=== PATIENT | female | born 1950 | race Caucasian/White ===

== ENCOUNTER → 2020-06-19 08:00 | Outpatient (BNVA) | payer OTHER, MEDICARE, SELFPAY | PROVIDERS: Family Provider Internal Medicine; PCP Family Medicine; Visit Provider Family Medicine | DX: N17.9 Acute kidney failure, unspecified (principal); G43.009 Migraine without aura, not intractable, without status migrainosus; I10 Essential (primary) hypertension; Z68.1 Body mass index [BMI] 19.9 or less, adult; F17.210 Nicotine dependence, cigarettes, uncomplicated | CPT/HCPCS: 80053; 81003 ==

== ENCOUNTER → 2020-08-04 11:12 | Outpatient (BNVA) | payer MEDICARE, OTHER, SELFPAY | PROVIDERS: Family Provider Internal Medicine; PCP Family Medicine; Visit Provider Family Medicine | DX: N30.90 Cystitis, unspecified without hematuria (principal) | CPT/HCPCS: 81003 ==

== ENCOUNTER → 2020-08-29 13:12 | Outpatient (BNVA) | payer MEDICARE, OTHER, SELFPAY | PROVIDERS: Family Provider Internal Medicine; PCP Family Medicine; Visit Provider Family Medicine | DX: N30.90 Cystitis, unspecified without hematuria (principal); R19.4 Change in bowel habit | CPT/HCPCS: 87086 ==

== ENCOUNTER → 2021-02-08 16:36 | Outpatient (BNVA) | payer MEDICARE, OTHER, SELFPAY | PROVIDERS: Family Provider Internal Medicine; PCP Family Medicine; Visit Provider Family Medicine | DX: R19.7 Diarrhea, unspecified (principal) | CPT/HCPCS: 74018 ==

== ENCOUNTER → 2021-05-10 11:26 | Outpatient (BNVA) | payer OTHER, MEDICARE, SELFPAY | PROVIDERS: Family Provider Internal Medicine; PCP Family Medicine; Visit Provider Family Medicine | DX: I10 Essential (primary) hypertension (principal); G43.009 Migraine without aura, not intractable, without status migrainosus; E78.5 Hyperlipidemia, unspecified; R19.7 Diarrhea, unspecified | CPT/HCPCS: 80053; 80061; 84443 ==

== ENCOUNTER → 2022-04-08 14:25 | Outpatient (BNVA) | payer MEDICARE, OTHER, SELFPAY | PROVIDERS: Family Provider Internal Medicine; PCP Family Medicine; Visit Provider Family Medicine | DX: G43.009 Migraine without aura, not intractable, without status migrainosus (principal); E78.5 Hyperlipidemia, unspecified; E78.2 Mixed hyperlipidemia; R11.0 Nausea; J30.2 Other seasonal allergic rhinitis; R19.4 Change in bowel habit; R19.7 Diarrhea, unspecified; I10 Essential (primary) hypertension | CPT/HCPCS: 80053; 80061; 84443; 85025 ==

== ENCOUNTER → 2022-04-29 14:56 | Outpatient (BNVA) | payer MEDICARE, OTHER, SELFPAY | PROVIDERS: Family Provider Internal Medicine; PCP Family Medicine; Visit Provider Family Medicine | DX: E87.6 Hypokalemia (principal); D64.9 Anemia, unspecified; E03.9 Hypothyroidism, unspecified | CPT/HCPCS: 80048; 84439; 84443; 84481; 85025 ==

== ENCOUNTER → 2023-01-21 15:28 | Outpatient (BNVA) | payer MEDICARE, OTHER, SELFPAY | PROVIDERS: Family Provider Internal Medicine; PCP Family Medicine; Visit Provider Internal Medicine Hematology & Oncology | DX: D50.9 Iron deficiency anemia, unspecified (principal) | CPT/HCPCS: 80053; 82728; 83550; 85025 ==

== ENCOUNTER → 2023-04-11 10:08 | Outpatient (BNVA) | payer MEDICARE, OTHER, SELFPAY | PROVIDERS: Family Provider Internal Medicine; PCP Family Medicine; Visit Provider Internal Medicine Hematology & Oncology | DX: D50.0 Iron deficiency anemia secondary to blood loss (chronic) (principal); R53.83 Other fatigue; Z79.899 Other long term (current) drug therapy; E03.9 Hypothyroidism, unspecified | CPT/HCPCS: 80053; 82607; 82746; 83615; 84443; 85025; 85045 ==

== ENCOUNTER → 2023-08-07 09:03 | Outpatient (BNVA) | payer MEDICARE, OTHER, SELFPAY | PROVIDERS: Family Provider Internal Medicine; PCP Family Medicine; Referring Provider Family Medicine; Visit Provider Psychiatry & Neurology Neurology | DX: G43.009 Migraine without aura, not intractable, without status migrainosus (principal) | CPT/HCPCS: 99203 ==

== ENCOUNTER → 2023-09-16 14:30 | Outpatient (BNVA) | payer MEDICARE, OTHER, SELFPAY | PROVIDERS: Family Provider Internal Medicine; PCP Family Medicine; Visit Provider Family Medicine | DX: R05.9 Cough, unspecified (principal) | CPT/HCPCS: 87400 ==

== ENCOUNTER → 2023-12-09 14:30 | Outpatient (BNVA) | payer MEDICARE, OTHER, SELFPAY | PROVIDERS: Family Provider Internal Medicine; PCP Family Medicine; Visit Provider Psychiatry & Neurology Neurology | DX: G43.111 Migraine with aura, intractable, with status migrainosus (principal) | CPT/HCPCS: 99212 ==

== ENCOUNTER → 2023-12-29 16:00 | Outpatient (BNVA) | payer MEDICARE, OTHER, SELFPAY | PROVIDERS: Family Provider Internal Medicine; PCP Family Medicine; Visit Provider Family Medicine | DX: I10 Essential (primary) hypertension (principal); E78.5 Hyperlipidemia, unspecified; E87.6 Hypokalemia; D50.9 Iron deficiency anemia, unspecified | CPT/HCPCS: 80053; 80061; 81003; 82746; 83540; 84443; 85025 ==

== ENCOUNTER → 2024-01-16 11:09 | Outpatient (BNVA) | payer MEDICARE, OTHER, SELFPAY | PROVIDERS: Family Provider Internal Medicine; PCP Family Medicine; Visit Provider Family Medicine | DX: E87.6 Hypokalemia (principal) | CPT/HCPCS: 80048 ==

== ENCOUNTER → 2024-06-29 13:41 | Outpatient (BNVA) | payer MEDICARE, OTHER, SELFPAY | PROVIDERS: Family Provider Internal Medicine; PCP Family Medicine; Visit Provider Psychiatry & Neurology Neurology | DX: R29.898 Other symptoms and signs involving the musculoskeletal system (principal); G43.111 Migraine with aura, intractable, with status migrainosus; R19.7 Diarrhea, unspecified; R53.1 Weakness; E87.6 Hypokalemia | CPT/HCPCS: 99212; 99214 ==

== ENCOUNTER 2024-07-08 12:41 | Oncology outpatient (recurring) (ONCR) | payer MEDICARE, OTHER, SELFPAY ==
[2024-07-08 13:46] VITALS: BP 116/81; PULSE 72; RESP 18; TEMP 36.6; O2SAT 93
[2024-07-08] MEDS: sodium chloride 0.9% 250 ML 75 ML IV (14:20)
[2024-07-08] MEDS: eptinezumab-jjmr 100 MG in sodium chloride 0.9% (100 ml) 100 ML 202 MG IV (14:20)
[2024-07-08 15:26] VITALS: BP 129/78; PULSE 78; RESP 18; TEMP 36.6; O2SAT 98
== END 2024-08-02 23:59 | disposition home or self-care (01) ==
PROVIDERS: Family Provider Internal Medicine; PCP Family Medicine; Visit Provider Psychiatry & Neurology Neurology
DX: Z79.899 Other long term (current) drug therapy (principal); G43.001 Migraine without aura, not intractable, with status migrainosus
CPT/HCPCS: 96365; A4222; J3032; J7050

== ENCOUNTER 2024-07-22 13:22 | Emergency (ER) | payer MEDICARE, OTHER, SELFPAY ==
[2024-07-22 13:33] VITALS: BP 65/42; PULSE 72; RESP 14; TEMP 36.8; O2SAT 94
--- NOTE | 2024-07-22 13:56 | XR_ITS ---
WS: [id number] Portable AP upright chest, 07/22/2024 Clinical Data: Weakness Comparison: None. Findings: No nodules, masses or effusions are seen. The heart is normal. The pulmonary vascularity is not increased. No pneumonia or pneumothorax is seen. The aortic arch and descending thoracic aorta s how tortuosity. There are monitor leads on the chest wall. XR/XR chest 1V portable [id number] Impression: Atherosclerosis.
--- NOTE | 2024-07-22 13:56 | CT_ITS ---
WS: [id number] CT HEAD NONCONTRAST HISTORY: Weakness TECHNIQUE: Contiguous axial imaging performed through the brain in 2.5 mm imaging. Bone and soft tiss ue windows. Sagittal and coronal reformats reviewed. All CT scans at [facility] use at least one of these dose optimization techniques: automated exposure control; mA and/or kV adjustment per pa tient size (includes targeted exams where dose is matched to clinical indication); or iterative recon struction. DLP: 1194.28 mGy.cm COMPARISON: None available. Mild atrophy. Slightly greater volume loss in the RIGHT cerebrum. No midline shift. No large territor y infarct. Remote lacunar infarct RIGHT caudate. No atrophy or prior infarcts or herniation. Ventricles: Cavum septum et pellucidum variation. No hydrocephalus. Paranasal sinuses: As visualized are clear. Mastoid air cells: Well pneumatized. Calvarium and scalp: Skull is intact with no soft tissue edema or swelling. CT/CT head wo con* [id number] IMPRESSION: 1. No acute intracranial hemorrhage or edema. 2. Cerebral atrophy with RIGHT caudate lacunar infarct.
--- NOTE | 2024-07-22 13:57 | ECG_ITS ---
[facility] Test Date: 2024-07-22 Pat Name: Shahla Johnson Department: Room: Gender: Female Production Controller: : 1950 Requested By: Eileen Salomon Order Number: [id number] Abbey MD: Jerald Orozco M.D. Measurements Intervals [place] Rate: 70 P: 74 [place]: 150 QRS: -28 QRSD: 97 T: 14 QT: 394 QTc: 427 Interpretive Statements SINUS RHYTHM BORDERLINE LEFT AXIS DEVIATION [QRS AXIS < -20] NONSPECIFIC T-WAVE ABNORMALITY Electronically Signed On 07-22-2024 14:13:08 CDT by Jerald Orozco M.D. [id number]
[2024-07-22] MEDS: sodium chloride 0.9% 1,000 ML 999 ML IV ×2 (14:02→15:23)
[2024-07-22 14:04] LABS: Basophils # 0.1 10^3/uL (0.0-0.1); Basophils % 0.6 %; Eosinophils # 0.3 10^3/uL (0.0-0.8); Eosinophils % 2.6 %; Hematocrit 38.6 % (36-47); Lymphocytes # 2.1 10^3/uL (0.8-4.8); Lymphocytes % 20.8 %; Mean Corpuscular HGB Conc 33.9 g/dL (30-55); Mean Corpuscular Hemoglobin 32.8 pg (27-33); Mean Corpuscular Volume 96.5 fl (85-98); Mean Platelet Volume 9.9 fL (7.4-10.4); Monocytes # 0.5 10^3/uL (0.2-0.9); Monocytes % 5.2 %; Neutrophils # 7.07 10^3/uL (1.8-7.7); Neutrophils % 70.5 %; Nucleated Red Blood Cells % 0 %; Platelet Count 179 10^3/cmm (157-399); Red Cell Distribution Width 13.8 % (12.1-15.1); White Blood Count 10.03 10^3/uL (3.29-11.43)
--- NOTE | 2024-07-22 14:14 | W.ED.WEAKNES ---
HPI - Weakness General: Chief complaint: Weakness Stated complaint: unstable legs Time Seen by Provider: 07/22/24 13:54 History of Present Illness: 74-year-old female who presents to the emergency room with weakness. She has a history of hypertension hyperlipidemia and seizures. She says he has been having episodes where she becomes so weak she can barely stand. She says her legs become very shaky. Arms are weak as well. She also says has been having some trouble swallowing. She reports over 10 pound weight loss in the last couple of months. She is somewhat hypotensive on presentation. She appears dehydrated. She has had no chest pain. No abdominal pain. She says she can drink liquids but has difficulty with solids getting stuck in her throat. No shortness of breath. No nausea or vomiting Review of Systems Narrative: Constitutional symptoms: Negative except as documented in HPI. Skin symptoms: Negative except as documented in HPI. Eye symptoms: Negative except as documented in HPI. ENMT symptoms: Negative except as documented in HPI. Respiratory symptoms: Negative except as documented in HPI. Cardiovascular symptoms: Negative except as documented in HPI. Gastrointestinal symptoms: Negative except as documented in HPI. Genitourinary symptoms: Negative except as documented in HPI. Musculoskeletal symptoms: Negative except as documented in HPI. Neurologic symptoms: Negative except as documented in HPI. Psychiatric symptoms: Negative except as documented in HPI. Endocrine symptoms: Negative except as documented in HPI. [facility] ED PFSH: Medical History (Updated 07/22/24 @ 16:48 by Eileen Govea MD) Seizures Bladder infection Hypertension Hyperlipidemia Surgical History H/O hysterectomy with oophorectomy History of tonsillectomy History of appendectomy History of rotator cuff surgery Family History Other CAD (coronary artery disease) Congestive heart failure (CHF) Valvular heart disease Social History Smoking and tobacco/nicotine status: never used tobacco/nicotine Second hand smoke exposure: Yes Alcohol intake: never Substance/Drug Use: never Lives independently: Yes Household members: spouse Marital status: service: No Current occupational status: retired Current gender identity: Female Special loly needs: No Physical Exam Narrative: EXAM NARRATIVE: General: Alert, no acute distress. Skin: Warm, dry. Head: Normocephalic, atraumatic. Neck: Supple, trachea midline. Eye: Extraocular movements are intact. Ears, nose, mouth and throat: Tacky oral mucosa Cardiovascular: Regular, Normal peripheral perfusion. Respiratory: Lungs are clear to auscultation, respirations are non-labored, breath sounds are equal, Symmetrical chest wall expansion. Gastrointestinal: Soft, Nontender, Non distended Musculoskeletal: Normal ROM, no deformity. Neurological: Alert and oriented, No focal neurological deficit observed. Psychiatric: Cooperative, appropriate mood & affect. Course Vital Signs: Vital signs: Vital Signs Temperature 98.2 F 07/22/24 13:33 Pulse Rate 85 07/22/24 16:22 Respiratory Rate 14 07/22/24 13:33 Blood Pressure 141/88 07/22/24 16:22 Pulse Oximetry 91 07/22/24 16:22 Oxygen Delivery Me thod Room Air 07/22/24 16:22 MDM - Weakness Medical Decision Making Medical decision making: Differential diagnosis for patient presenting with generalized weakness including but not limited to and based on the above HPI, review of systems and physical exam: Sepsis. Dehydration. Renal failure. Electrolyte abnormalities. Anemia. Congestive heart failure. Hypotension. Coronary syndrome. Hepatitis. Cirrhosis. Infections such as pneumonia, urinary tract infection, [place] illness, Cellulitis, Viral infections including influenza and Covid-19. Workup: labwork and lab/exam driven imaging ordered to evaluate, rule in and rule out above pathologies. EKG: Time 1409. Rate 70. Normal sinus rhythm, No ST-T changes, no ectopy, normal [place] & QRS intervals, This was reviewed and interpreted by myself the ER physician at 1411. Repeat EKG: Time 1536. Rate 80. Normal sinus rhythm, No ST-T changes, no ectopy, normal [place] & QRS intervals, This was reviewed and interpreted by myself the ER physician at 1540. No significant changes from EKG done earlier today in the emergency room Chest x-ray: No acute process. No infiltrate. No pneumothorax. This was reviewed and interpreted by myself the ER physician. CT of the chest abdomen pelvis: Chronic emphysematous changes. Pulmonary nodule. Aortic abnormalities as described below. No ischemic changes. Changes of the SMA. Patient has good pulses. Lab Review: Laboratory results were reviewed and interpreted by myself the emergency room physician. No leukocytosis. No anemia. BUN and creatinine are 15 and 1.2 which is at her baseline. Her potassium is notably low at 2.8. This is being replaced. Patient does have apparent urinary tract infection with slightly concentrated urine at 1.017. I reviewed the patient's medical record. Reexamination: Patient remained stable. No increased work of breathing. No altered mental status. No focal motor deficits. Blood pressure has improved. Patient appears to be feeling better. Consultation: I spoke with Dr. Campuzano about the patient's dysphagia. He will see her in clinic and consider EGD for possible esophageal stricture. Consultation: I spoke with Dr. Chato Klein with vascular surgery at [facility]. We discussed findings found on the CT scan. Patient has good pulses and he feels that this is not an emergent finding. She is not having any ischemic symptoms. He says she can follow-up within the clinic Assessment and plan: Weakness Hypokalemia Dehydration Dysphagia Aortic dissection Pulmonary nodule Urinary tract infection ?IV fluids, IV potassium and oral potassium here in the emergency room. ?IV Rocephin. - Discharged home - Discussed findings and plan with patient. Answered any questions. - All laboratory values were reviewed and interpreted personally by myself, the ER physician - All imaging was reviewed and interpreted personally by myself, the ER physician. - Evaluation and treatment of this problem were appropriate in the emergency setting Lab Data 07/22/24 13:50 07/22/24 13:50 Radiology Impressions Chest X-Ray 07/22/24 13:56 Impression: Atherosclerosis. Head CT 07/22/24 13:56 IMPRESSION: 1. No acute intracranial hemorrhage or edema. 2. Cerebral atrophy with RIGHT caudate lacunar infarct. Chest/Abdomen/Pelvis CT 07/22/24 14:39 IMPRESSION: 1. Chronic emphysematous changes with scarring at the RIGHT apex and groundglass attenuation. Consider follow-up evaluation in 3 months to exclude low-grade neoplasm. 2. No mediastinal or hilar adenopathy. 3. Bilobed abdominal aortic aneurysm. Suprarenal aneurysm 3.8 cm. Infrarenal aneurysm 3.0 cm. 4. Greater than 50% asymmetric thrombus in the infrarenal abdominal aorta. Moderate stenosis of the lumen. There is asymmetric thrombus which may actually be part of aortic dissection with a thrombosed lumen. No prior studies for comparison. 5. Extensive constipation. 6. Celiac axis stent is patent. 7. 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 Age age-indeterminate occlusion. No definite ischemic changes are noted in the GI tract on this exam. The thrombosed SMA is contiguous with the thrombus in the aorta which may be part of a chronic dissection. 8. Hepatic hemangioma. 9. Bilateral renal cysts. Notified Eileen Govea MD at 07/22/2024 3:38 PM. Laboratory Results WBC 10.03 10^3/uL (3.29-11.43) 07/22/24 13:50 RBC 4.00 10^6/uL (3.85-5.65) 07/22/24 13:50 Hgb 13.10 g/dL (11.27-16.99) 07/22/24 13:50 Hct 38.6 % (36-47) 07/22/24 13:50 MCV 96.5 fl (85-98) 07/22/24 13:50 MCH 32.8 pg (27-33) 07/22/24 13:50 MCHC 33.9 g/dL (30-55) 07/22/24 13:50 RDW 13.8 % (12.1-15.1) 07/22/24 13:50 Plt Count 179 10^3/cmm (157-399) 07/22/24 13:50 MPV 9.9 fL (7.4-10.4) 07/22/24 13:50 Neut % (Auto) 70.5 % 07/22/24 13:50 Lymph % (Auto) 20.8 % 07/22/24 13:50 [place] % (Auto) 5.2 % 07/22/24 13:50 Eos % (Auto) 2.6 % 07/22/24 13:50 Baso % (Auto) 0.6 % 07/22/24 13:50 Neut # (Auto) 7.07 10^3/uL (1.8-7.7) 07/22/24 13:50 Lymph # (Auto) 2.1 10^3/uL (0.8-4.8) 07/22/24 13:50 [place] # (Auto) 0.5 10^3/uL (0.2-0.9) 07/22/24 13:50 Eos # (Auto) 0.3 10^3/uL (0.0-0.8) 07/22/24 13:50 Baso # (Auto) 0.1 10^3/uL (0.0-0.1) 07/22/24 13:50 Nucleated RBC % (auto) 0 % 07/22/24 13:50 Nucleated RBCs # 0.0 /100WBC 07/22/24 13:50 Sodium 142 mmol/L (136-145) 07/22/24 13:50 Potassium 2.8 mmol/L (3.5-5.1) L* 07/22/24 13:50 Chloride 103 mmol/L (98-107) 07/22/24 13:50 Carbon Dioxide 26 mmol/L (22-29) 07/22/24 13:50 Anion Gap 15.8 (5-19) 07/22/24 13:50 BUN 15 mg/dL (8-23) 07/22/24 13:50 Creatinine 1.2 mg/dL (0.5-0.9) H 07/22/24 13:50 GFR Calculation Not Reportable 07/22/24 13:50 Glucose 92 mg/dL (65-115) 07/22/24 13:50 Calculated Osmolality 294 mOsm/kg (285-295) 07/22/24 13:50 Lactic Acid 1.1 mmol/L (0.5-2.2) 07/22/24 13:50 Calcium 8.6 mg/dL (8.5-10.5) 07/22/24 13:50 Magnesium 1.8 mg/dL (1.7-2.3) 07/22/24 13:50 Total Bilirubin 0.2 mg/dL (0.15-1.2) 07/22/24 13:50 AST 20 U/L (0-32) 07/22/24 13:50 ALT 16 U/L (0-33) 07/22/24 13:50 Alkaline Phosphatase 92 U/L (35-105) 07/22/24 13:50 Troponin T Baseline 29 ng/L (0-10) H 07/22/24 13:50 Troponin T 120 Minute 20.44 ng/L (0-10) H 07/22/24 16:06 Delta Troponin T -8.56 ABS# (0-10) L 07/22/24 16:06 C-Reactive Protein 5.7 mg/L (0.0-4.9) H 07/22/24 13:50 Total Protein 6.1 g/dL (6.6-8.7) L 07/22/24 13:50 Albumin 3.8 g/dL (3.5-5.2) 07/22/24 13:50 Globulin 2.3 g/dL (1.3-4.6) 07/22/24 13:50 Urine Color Yellow (Yellow) 07/22/24 15:51 Urine Appearance Clear (CLEAR) 07/22/24 15:51 Urine pH 6.0 (5-7) 07/22/24 15:51 Ur Specific [place] 1.017 (1.005-1.030) 07/22/24 15:51 Urine Protein Negative (Negative) 07/22/24 15:51 Urine Glucose (UA) Negative (Normal) 07/22/24 15:51 Urine Ketones Negative (Negative) 07/22/24 15:51 Urine Blood Negative (Negative) 07/22/24 15:51 Urine Nitrate Negative (Negative) 07/22/24 15:51 Urine Bilirubin Negative (Negative) 07/22/24 15:51 Urine Urobilinogen 0.2 mg/dL (Negative) 07/22/24 15:51 Ur Leukocyte Esterase 2+ (Negative) A 07/22/24 15:51 Urine RBC 0-2 /hpf (0-2) 07/22/24 15:51 Urine WBC 11-20 /hpf (0-5) H 07/22/24 15:51 Ur Squamous Epith Cells 11-20 /hpf (0-5) 07/22/24 15:51 Amorphous Sediment Not Reportable 07/22/24 15:51 Urine Bacteria None seen /hpf (NONE) 07/22/24 15:51 Hyaline Casts 1.65 /lpf 07/22/24 15:51 All radiology interpretation(s) finalized by discharge Discharge Plan Discharge Patient Disposition: Home Clinical Impression: Dehydration, Weakness, Hypokalemia, Dysphagia, Urinary tract infection, Aortic dissection, abdominal, Incidental pulmonary nodule Condition: Stable Prescriptions: New potassium chloride 40 mEq/15 mL liquid 40 meq PO DAILY 7 Days Qty: 105 0RF cefdinir 300 mg capsule 300 mg PO BID 5 Days Qty: 10 0RF No Action aspirin [Adult Aspirin Regimen] 81 mg tablet,delayed release (DR/EC) 81 mg PO DAILY melatonin 5 mg capsule PO promethazine 25 mg tablet 25 mg PO BID PRN (Reason: nausea and vomiting) Qty: 90 2RF sumatriptan succinate 100 mg tablet See Rx Instructions PO .COMPLEX Qty: 14 0RF Rx Instructions: take 1 tab at onset of headache; if no relief, may repeat 1 tab after at least 2 hrs; max = 2 tabs/24 hrs PO gabapentin 100 mg capsule 100 mg PO TID Qty: 90 5RF ketorolac 10 mg tablet 10 mg PO DAILY PRN (Reason: pain) Qty: 20 4RF Rx Instructions: 2 tabs a day if needed folic acid 1 mg tablet 1 mg PO DAILY Qty: 30 3RF promethazine [Phenergan] 25 mg/mL solution 25 mg IM ONCE Qty: 1 0RF ketorolac 30 mg/mL solution 30 mg IM ONCE Qty: 1 0RF betamethasone acet,sod phos [Celestone Soluspan] 6 mg/mL suspension 6 mg IM ONCE Qty: 1 0RF promethazine [Phenergan] 25 mg/mL solution 25 mg IM ONCE Qty: 1 0RF dexamethasone sodium phosphate 4 mg/mL solution 4 mg IM ONCE Qty: 1 0RF ketorolac 30 mg/mL solution 60 mg IM ONCE Qty: 2 0RF nortriptyline 75 mg capsule 75 mg PO .qhs Qty: 90 3RF lisinopril 20 mg tablet 20 mg PO QDAY Qty: 90 0RF dicyclomine 20 mg tablet 20 mg PO QID Qty: 120 1RF levocetirizine [Xyzal] 5 mg tablet 5 mg PO DAILY 90 Days Qty: 90 1RF nicotine 7 mg/24 hr patch 24 hour 1 patch transdermal DAILY Qty: 28 0RF megestrol 400 mg/10 mL (40 mg/mL) suspension See Rx Instructions .ROUTE .COMPLEX Qty: 480 1RF Dose Instruction: TAKE 10 ML BY MOUTH TWICE DAILY Rx Instructions: TAKE 10 ML BY MOUTH TWICE DAILY nystatin 100,000 unit/mL suspension 2.5 ml buccal BID Qty: 160 0RF Rx Instructions: administer 1/2 of dose in each side of the mouth swish and swallow montelukast 10 mg tablet See Rx Instructions .ROUTE .COMPLEX Qty: 30 3RF Dose Instruction: TAKE ONE TABLET BY MOUTH EVERY DAY Rx Instructions: TAKE ONE TABLET BY MOUTH EVERY DAY clonidine HCl 0.1 mg tablet 0.1 mg PO TID Qty: 90 1RF metoprolol tartrate 25 mg tablet 12.5 mg PO BID Qty: 180 0RF fluticasone propionate 50 mcg/actuation spray,suspension See Rx Instructions .ROUTE .COMPLEX 90 Days Qty: 16 3RF Dose Instruction: USE TWO SPRAYS IN EACH NOSTRIL EVERY DAY Rx Instructions: USE TWO SPRAYS IN EACH NOSTRIL EVERY DAY ferrous gluconate 324 mg (38 mg iron) tablet 324 mg PO TID Qty: 90 1RF vropaottks-ggvvtdqxjfqkh-oyma 50-300-40 mg capsule 1 cap PO .4 to 6 hr PRN (Reason: headache) Qty: 360 0RF benzonatate 100 mg capsule 100 mg PO TID PRN (Reason: cough) Qty: 30 1RF diphenoxylate-atropine [Lomotil] 2.5-0.025 mg tablet 1 tab PO Q8H PRN (Reason: diarrhea) Qty: 60 2RF cholecalciferol (vitamin D3) 1,250 mcg (50,000 unit) capsule 50,000 unit PO .weekly Qty: 12 2RF potassium chloride 20 mEq tablet extended release 20 meq PO DAILY Qty: 30 0RF Rx Instructions: needs lab in 2 weeks venlafaxine [Effexor XR] 75 mg capsule,extended release 24hr 75 mg PO DAILY Qty: 30 1RF levothyroxine 50 mcg tablet See Rx Instructions .ROUTE .COMPLEX Qty: 90 3RF Dose Instruction: TAKE 1 TABLET DAILY Rx Instructions: TAKE 1 TABLET DAILY memantine 10 mg tablet See Rx Instructions .ROUTE .COMPLEX Qty: 14 0RF Dose Instruction: TAKE 1 TABLET TWICE A DAY Rx Instructions: TAKE 1 TABLET TWICE A DAY atorvastatin 40 mg tablet 40 mg PO DAILY buspirone 7.5 mg tablet 7.5 mg PO DAILY Discharge Orders: Discharge ED (Routine); Ordered 07/22/24 Ordered By: Eileen Govea Referrals: Cipriano Kelly MD [Physician] - 4-7 days (Please call for an appointment to have him evaluate you for possible EGD) Ene Lamas MD [Primary Care Provider] - Discharge Diet: Usual diet Discharge Activity: Increase activity as tolerated Patient Instructions: Dehydration (ED), Hypokalemia (ED), Pulmonary Nodules (ED) Activity Restrictions/Additional Instructions: Please follow-up with vascular surgery. I have spoken with Dr. Chato Klein at [facility] he feels the the problem is likely not emergent but if you want to have this evaluated further please bring a CD of your CAT scan and follow in his clinic. The number is [phone]. Address is [address] [place] [address] [email or web address]. [place] [address]. A pulmonary nodule was seen on imaging. This will need follow up imaging with your primary provider. Please schedule an appointment concerning this. Thank you for choosing [facility] for your healthcare needs today. Please realize this is an emergency room and that we are providing you with a medical screening exam and this may not be complete and all inclusive of all the testing and or work up that you may need to determine your ailment or severity of your illness. You have been screened and evaluated and felt safe for discharge. Health conditions do change or evolve sometimes and as such it is important that you follow up with your Primary Doctor to be re checked, 3-5 days is a general good time frame for follow up. You are always welcome to return to the ED for re assessment if your symptoms are worsening or you have new concerns Coding Level of Care Code ED [facility] Reporter for Chg Fwd Related Data Home Medications Medication Instructions Recorded Confirmed aspirin 81 mg tablet,delayed 81 mg PO DAILY 07/04/21 06/29/24 release (Adult Aspirin Regimen) melatonin 5 mg capsule mg PO 07/04/21 06/29/24 atorvastatin 40 mg tablet 40 mg PO DAILY 07/22/24 buspirone 7.5 mg tablet 7.5 mg PO DAILY 07/22/24 Previous Rx's Medication Instructions Recorded lisinopril 20 mg tablet 20 mg PO QDAY #90 tabs 05/29/21 dicyclomine 20 mg tablet 20 mg PO QID #120 tabs 06/10/22 levocetirizine 5 mg tablet (Xyzal) 5 mg PO DAILY 90 days #90 tabs 06/10/22 nicotine 7 mg/24 hr daily 1 patch transdermal DAILY #28 ea 07/11/22 transdermal patch megestrol 400 mg/10 mL (40 mg/mL) See Rx Instructions .Route 08/16/22 oral suspension .COMPLEX #480 mL nystatin 100,000 unit/mL oral 2.5 ml buccal BID #160 mL 11/13/22 suspension montelukast 10 mg tablet See Rx Instructions .Route 12/09/22 .COMPLEX #30 tabs clonidine HCl 0.1 mg tablet 0.1 mg PO TID #90 tabs 12/18/22 metoprolol tartrate 25 mg tablet 12.5 mg (1/2 x 25 mg) PO BID #180 12/18/22 tabs promethazine 25 mg tablet 25 mg PO BID PRN nausea and 12/20/22 vomiting #90 tabs fluticasone propionate 50 See Rx Instructions .Route 01/14/23 mcg/actuation nasal .COMPLEX 90 days #16 grams spray,suspension sumatriptan succinate 100 mg tablet See Rx Instructions PO .COMPLEX 05/28/23 #14 tabs ferrous gluconate 324 mg (38 mg 324 mg PO TID #90 tabs 06/23/23 iron) tablet hqcjsfvxjr-gdoheywtvtphs-azxzlzzs 1 cap PO .4 to 6 hr PRN headache 07/09/23 50 mg-300 mg-40 mg capsule #360 caps benzonatate 100 mg capsule 100 mg PO TID PRN cough #30 caps 10/08/23 diphenoxylate-atropine 2.5 1 tab PO Q8H PRN diarrhea #60 tabs 11/19/23 mg-0.025 mg tablet (Lomotil) cholecalciferol (vitamin D3) 1,250 50,000 unit PO .weekly #12 caps 12/15/23 mcg (50,000 unit) capsule folic acid 1 mg tablet 1 mg PO DAILY #30 tabs 12/29/23 potassium chloride 20 mEq 20 meq PO DAILY #30 tabs 02/05/24 tablet,extended release venlafaxine 75 mg capsule,extended 75 mg PO DAILY #30 caps 04/23/24 release 24 hr (Effexor XR) nortriptyline 75 mg capsule 75 mg PO .qhs #90 caps 05/31/24 levothyroxine 50 mcg tablet See Rx Instructions .Route 06/03/24 .COMPLEX #90 tabs memantine 10 mg tablet See Rx Instructions .Route 06/11/24 .COMPLEX #14 tabs gabapentin 100 mg capsule 100 mg PO TID #90 caps 06/29/24 ketorolac 10 mg tablet 10 mg PO DAILY PRN pain #20 tabs 06/29/24 cefdinir 300 mg capsule 300 mg PO BID 5 days #10 caps 07/22/24 potassium chloride 40 mEq/15 mL 40 meq (15 mL) PO DAILY 7 days 07/22/24 oral liquid #105 mL Allergies Allergy/AdvReac Type Severity Reaction Status Date / Time morphine Allergy unk Verified 07/22/24 13:43 Sulfa (Sulfonamide Allergy unk Verified 07/22/24 13:43 Antibiotics)
[2024-07-22 14:22] LABS: Lactic Sepsis W/Reflex 1.1 mmol/L (0.5-2.2)
[2024-07-22 14:23] LABS: Alanine Aminotransferase 16 U/L (0-33); Albumin Level 3.8 g/dL (3.5-5.2); Alkaline Phosphatase 92 U/L (35-105); Anion Gap 15.8 (5-19); Aspartate Amino Transferase 20 U/L (0-32); Blood Urea Nitrogen 15 mg/dL (8-23); C Reactive Protein 5.7 mg/L (0.0-4.9); Calcium 8.6 mg/dL (8.5-10.5); Carbon Dioxide 26 mmol/L (22-29); Chloride 103 mmol/L (98-107); Creatinine Clr Calc Pharmacy 28.8001; Globulin 2.3 g/dL (1.3-4.6); Glucose 92 mg/dL (65-115); Magnesium 1.8 mg/dL (1.7-2.3); Osmolality Calculated 294 mOsm/kg (285-295); Sodium 142 mmol/L (136-145); Total Bilirubin 0.2 mg/dL (0.15-1.2); Total Protein 6.1 g/dL (6.6-8.7)
[2024-07-22 14:28] LABS: Potassium 2.8 mmol/L (3.5-5.1)
[2024-07-22 14:29] LABS: Troponin(5th) Baseline 29 ng/L (0-10)
--- NOTE | 2024-07-22 14:39 | CT_ITS ---
WS: [id number] CT CHEST, ABDOMEN AND PELVIS WITH CONTRAST HISTORY: weight loss, trouble swallowing, weakness TECHNIQUE: Contiguous 5 mm axial imaging performed through the chest, abdomen and pelvis IV contrast, oral contrast has been provided. Coronal and sagittal reformats chest. Coronal and sagittal reformat s through the abdomen and pelvis. All CT scans at [facility] use at least one of these dose o ptimization techniques: automated exposure control; mA and/or kV adjustment per patient size (include s targeted exams where dose is matched to clinical indication); or iterative reconstruction. CONTRAST: Omnipaque 350; 70 mL IV. DLP: 587.66 mGy.cm COMPARISON: None available. Chest CT: Chronic emphysema. Lungs are expanded. Scarring with groundglass attenuation at the RIGHT a pex. Mild interstitial thickening throughout both lungs. No pneumothorax or pulmonary contusion. No p leural or pericardial effusions. Mild atherosclerosis aorta. Normal size pulmonary artery. Ectatic th oracic aorta with no aneurysm. No adenopathy. Abdomen CT: Normal size liver. Peripherally enhancing mass in the central liver measures 2.8 x 2.5 cm and is most consistent with a hemangioma due to the enhancement. There are a few scattered additiona l scattered hypodensities which are too small to characterize but probably representing cysts. Spleen is normal size with granulomata. No pancreatic abnormality. Gallbladder is not dilated. Renee hepati s is poorly seen. No adrenal mass. Bilateral renal cysts. No obstruction. Aneurysmal dilatation of th e abdominal aorta. Maximum diameter aorta at just below the GE junction is 3.8 cm. Below the renal ar teries there is an additional aneurysm measuring 3.0 cm. Enhancing lumen is asymmetric to the RIGHT. There is a large amount of noncalcified thrombus within the lumen measuring 1.7 cm in diameter. Heavy calcification and plaque extends into the iliac arteries. RIGHT iliac artery ectasia and mild dilata tion. Patent celiac artery stent. No contrast enhancement is noted in the proximal SMA. There is thrombus p resent with reconstitution distally. No GI tract obstruction. There is diffuse constipation. No ischemic changes or free air. Pelvic CT: Urinary bladder is overly distended. No free fluid. CT/CT chest abdpel w/*[id number] IMPRESSION: 1. Chronic emphysematous changes with scarring at the RIGHT apex and groundgla ss attenuation. Consider follow-up evaluation in 3 months to exclude low-grade neoplasm. 2. No mediastinal or hilar adenopathy. 3. Bilobed abdominal aortic aneurysm. Suprarenal aneurysm 3.8 cm. Infrarenal a neurysm 3.0 cm. 4. Greater than 50% asymmetric thrombus in the infrarenal abdominal aorta. Mod erate stenosis of the lumen. There is asymmetric thrombus which may actually be part of aortic dissection with a thrombosed lumen. No prior studies for compar nilesh. 5. Extensive constipation. 6. Celiac axis stent is patent. 7. 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 Age age-indeterminate occlusion. No definite ischemic changes are noted in the GI tract on this exam . The thrombosed SMA is contiguous with the thrombus in the aorta which may be part of a chronic dissection. 8. Hepatic hemangioma. 9. Bilateral renal cysts. Notified Eileen Govea MD at 07/22/2024 3:38 PM.
[2024-07-22] MEDS: iohexol 350 mg/mL 500 mL Btl (per mL) IV (15:00)
[2024-07-22] MEDS: potassium chloride oral liq 20 mEq/15 mL UDC 40 MEQ PO (15:14)
[2024-07-22] MEDS: potassium chloride premix 100 ML 25 MEQ IV (15:16)
--- NOTE | 2024-07-22 15:36 | ECG_ITS ---
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 Measurements Intervals [place] Rate: 80 P: 101 [place]: 163 QRS: 197 QRSD: 92 T: 138 QT: 361 QTc: 418 Interpretive Statements SINUS RHYTHM ARM LEADS REVERSED [INVERTED P AND QRS IN I] Compared to ECG 07/22/2024 14:09:12 T-wave abnormality no longer present Electronically Signed On 07-22-2024 22:25:25 CDT by Jerald Orozco M.D. [id number]
[2024-07-22 16:10] LABS: Bilirubin Urine Negative (Negative); Blood Urine Negative (Negative); Glucose Urine UA Negative (Normal); Ketones Urine Negative (Negative); Leukocyte Esterase Urine 2+ (Negative); Nitrate Urine Negative (Negative); Protein Urine Negative (Negative); Specific Gravity, Urine 1.017 (1.005-1.030); Urine Appearance Clear (CLEAR); Urine Color Yellow (Yellow); Urobilinogen Urine 0.2 mg/dL (Negative)
[2024-07-22 16:12] LABS: Bacteria Urine None Seen /hpf; Hyaline Casts Urine 1.65 /lpf; RBC Urine 0-2 /hpf (0-2)
[2024-07-22 16:21] LABS: Add Urine Culture? No
[2024-07-22 16:22] VITALS: BP 141/88; PULSE 85; O2SAT 91
[2024-07-22 16:32] LABS: Troponin 5 2HR 20.44 ng/L (0-10)
[2024-07-22 16:33] LABS: Troponin 5 2HR Delta -8.56 ABS# (0-10)
[2024-07-22] MEDS: cefTRIAXone 1,000 mg SDV 1000 MG IVP (17:15)
[2024-07-22 17:44] VITALS: BP 140/92; PULSE 67; O2SAT 95
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
[2024-07-22 18:43] VITALS: BP 147/85; PULSE 86; O2SAT 98
== END 2024-07-22 18:43 | disposition home or self-care (01) ==
PROVIDERS: Emergency Provider Emergency Medicine; PCP Family Medicine
DX: R53.1 Weakness (principal); E86.0 Dehydration; E87.6 Hypokalemia; R13.10 Dysphagia, unspecified; N39.0 Urinary tract infection, site not specified; I71.02 Dissection of abdominal aorta; R91.1 Solitary pulmonary nodule; Z79.82 Long term (current) use of aspirin; Z77.22 Contact with and (suspected) exposure to environmental tobacco smoke (acute) (chronic); I10 Essential (primary) hypertension; E78.5 Hyperlipidemia, unspecified
CPT/HCPCS: 36415; 70450; 71045; 71260; 74177; 80053; 81001; 83605; 83735; 84484; 85025; 86140; 93005; 96365; 96366; 96375; 99285; J0696; J3480; J7030

== ENCOUNTER 2024-08-09 13:00 | Outpatient (CLI) | payer MEDICARE, OTHER, SELFPAY ==
--- NOTE | 2024-08-09 14:30 | MR_ITS ---
WS: [id number] MRI LUMBAR SPINE NONCONTRAST HISTORY: R29.898 - Other symptoms and signs involving the musculos... COMPARISON: None available. TECHNIQUE: Sagittal and axial multisequence imaging is submitted. No post contrast imaging done due t o patient motion. Mild increase in the lumbar lordosis. Mild disc space narrowing and desiccation. No fracture or marrow edema. Conus terminates normally at L1-2 disc level. Patient had a difficult time remaining still for this examination. L1-L2: Mild facet joint arthritis. No stenosis. L2-L3: Mild annular disc bulging with ligamentum flavum and facet arthritis. There is mild central an d subarticular recess encroachment and foraminal stenosis. L3-L4: Mild annular disc bulging with a shallow LEFT foraminal disc protrusion. Moderate bilateral fa cet joint arthritis and ligamentum flavum hypertrophy. Mild central and bilateral subarticular recess and LEFT foraminal stenosis. L4-L5: Diffuse annular disc bulging with ligamentum flavum and facet arthritis. Disc contacts the L4 and L5 nerve roots. Mild to moderate central with bilateral subarticular recess stenosis and foramina l narrowing. L5-S1: Mild annular disc bulging with a central disc protrusion. Disc encroaches upon the L5 and S1 n erve roots. Mild central and foraminal stenosis with moderate bilateral foraminal stenosis. Bilateral renal cysts. MR/MR lumbar spine wo con* [id number] IMPRESSION: 1. No acute lumbar spine fracture. 2. Study quality compromised by motion artifact. 3. L3-4: Mild central, bilateral subarticular recess and LEFT foraminal stenos is due to disc and osteophyte disease. 4. L4-5: Mild to moderate central with bilateral subarticular recess and gm inal stenosis. There is disc contacting the L4 and L5 nerve roots. 5. L5-S1: Central disc protrusion. Disc encroaches upon the L5 and S1 nerve ro ots. Mild central and foraminal stenosis with moderate bilateral foraminal sten osis.
== END 2024-08-09 13:01 | disposition home or self-care (01) ==
LOC: RAD 13:01
PROVIDERS: PCP Family Medicine; Visit Provider Psychiatry & Neurology Neurology
DX: M99.63 Osseous and subluxation stenosis of intervertebral foramina of lumbar region (principal); M25.78 Osteophyte, vertebrae; R29.898 Other symptoms and signs involving the musculoskeletal system; Q61.02 Congenital multiple renal cysts
CPT/HCPCS: 72148

== ENCOUNTER → 2024-08-19 13:08 | Outpatient (BNVA) | payer MEDICARE, OTHER, SELFPAY | PROVIDERS: PCP Family Medicine; Visit Provider Orthopaedic Surgery | DX: M54.9 Dorsalgia, unspecified (principal) | CPT/HCPCS: 72110; 99204 ==

== ENCOUNTER → 2024-08-26 14:02 | Outpatient (BNVA) | payer MEDICARE, OTHER, SELFPAY | PROVIDERS: PCP Family Medicine; Referring Provider Psychiatry & Neurology Neurology; Visit Provider Psychiatry & Neurology Neurology | DX: R29.898 Other symptoms and signs involving the musculoskeletal system (principal) | CPT/HCPCS: 95910 ==

== ENCOUNTER → 2024-08-31 14:37 | Outpatient (BNVA) | payer MEDICARE, OTHER, SELFPAY | PROVIDERS: PCP Family Medicine; Visit Provider Psychiatry & Neurology Neurology | DX: R29.898 Other symptoms and signs involving the musculoskeletal system (principal); G43.111 Migraine with aura, intractable, with status migrainosus | CPT/HCPCS: 96372; 99212; J1885; J2405 ==

== ENCOUNTER 2024-10-07 13:51 | Oncology outpatient (recurring) (ONCR) | payer MEDICARE, OTHER, SELFPAY ==
[2024-10-07] MEDS: eptinezumab-jjmr 300 MG in sodium chloride 0.9% (100 ml) 100 ML 206 MG IV (15:27)
[2024-10-07 16:13] VITALS: BP 148/93; PULSE 81; RESP 16; TEMP 36.6; O2SAT 94
== END 2024-11-02 23:59 | disposition home or self-care (01) ==
PROVIDERS: PCP Family Medicine; Visit Provider Psychiatry & Neurology Neurology
DX: G43.001 Migraine without aura, not intractable, with status migrainosus (principal); Z79.899 Other long term (current) drug therapy
CPT/HCPCS: 96413; A4222; J3032

== ENCOUNTER 2024-12-30 12:37 | Oncology outpatient (recurring) (ONCR) | payer MEDICARE, OTHER, SELFPAY ==
[2024-12-30 14:35] VITALS: BP 139/89; PULSE 82; RESP 17; TEMP 36.9; O2SAT 98
[2024-12-30] MEDS: eptinezumab-jjmr 300 MG in sodium chloride 0.9% (100 ml) 100 ML 206 MG IV (15:29)
[2024-12-30 16:07] VITALS: BP 128/82; PULSE 68; RESP 18; TEMP 36.9; O2SAT 98
== END 2024-12-31 23:59 | disposition home or self-care (01) ==
PROVIDERS: PCP Family Medicine; Visit Provider Psychiatry & Neurology Neurology
DX: G43.001 Migraine without aura, not intractable, with status migrainosus (principal); Z79.899 Other long term (current) drug therapy
CPT/HCPCS: 96365; A4222; J3032

== ENCOUNTER 2025-03-24 13:27 | Oncology outpatient (recurring) (ONCR) | payer MEDICARE, OTHER, SELFPAY ==
[2025-03-24 13:45] VITALS: BP 111/77; PULSE 104; RESP 16; TEMP 36.8; O2SAT 97
[2025-03-24] MEDS: eptinezumab-jjmr 300 MG in sodium chloride 0.9% (100 ml) 100 ML 206 MG IV (14:36)
--- NOTE | 2025-03-24 15:33 | PC.NURSE ---
Patient was difficult to acquire a successful IV on. IV access was successful in her left hand near her thumb. After 50ML of Vyepti infusion, patient's IV infiltrated and was removed. Dr. Roman was contacted and instructed to stop infusion for the day, depart patient with instructions to hydrate well and return in a week for infusion.
== END 2025-04-02 23:59 | disposition home or self-care (01) ==
PROVIDERS: PCP Family Medicine; Visit Provider Psychiatry & Neurology Neurology
DX: G43.001 Migraine without aura, not intractable, with status migrainosus (principal); Z79.899 Other long term (current) drug therapy
CPT/HCPCS: 96413; A4222; J3032